=== PATIENT | female | born 1955 | race Caucasian/White ===

== ENCOUNTER → 2018-01-03 10:48 | Outpatient (CLI) | payer MEDICARE | END | disposition home or self-care (01) | LOC: D.RT 10:48 | DX: R06.09 Other forms of dyspnea (principal); J45.909 Unspecified asthma, uncomplicated ==

== ENCOUNTER → 2019-03-21 09:19 | Outpatient (CLI) | payer MEDICARE | END | disposition home or self-care (01) | LOC: EDSEX 09:19 → D.RT 09:19 | PROVIDERS: ATTEND Internal Medicine Pulmonary Disease | DX: J45.909 Unspecified asthma, uncomplicated (principal) ==